=== PATIENT | female | born 1965 | race Two or more races ===

== ENCOUNTER 2020-04-08 07:46 | Outpatient (CLI) | payer OTHER | END 2020-04-08 08:07 | disposition home or self-care (01) | LOC: MAMO-SONO 07:46 | PROVIDERS: ATTEND Internal Medicine | DX: Z12.31 Encounter for screening mammogram for malignant neoplasm of breast (principal); N63.20 Unspecified lump in the left breast, unspecified quadrant; C73 Malignant neoplasm of thyroid gland; E89.0 Postprocedural hypothyroidism ==

== ENCOUNTER 2022-05-24 08:30 | Outpatient (CLI) | payer OTHER | END 2022-05-24 08:40 | disposition home or self-care (01) | LOC: SONOGRAMA 08:30 | PROVIDERS: ATTEND Internal Medicine Sports Medicine | DX: C73 Malignant neoplasm of thyroid gland (principal) ==

== ENCOUNTER 2023-01-22 09:50 | Outpatient (CLI) | payer OTHER | END 2023-01-22 10:08 | disposition home or self-care (01) | LOC: MAMO-SONO 09:50 | PROVIDERS: ATTEND Internal Medicine Sports Medicine | DX: Z12.31 Encounter for screening mammogram for malignant neoplasm of breast (principal); R31.29 Other microscopic hematuria ==

== ENCOUNTER 2023-06-11 07:59 | Outpatient (CLI) | payer OTHER | END 2023-06-11 08:07 | disposition home or self-care (01) | LOC: SONOGRAMA 07:59 | DX: M19.19 Post-traumatic osteoarthritis, other specified site (principal); Z13.828 Encounter for screening for other musculoskeletal disorder ==

== ENCOUNTER 2023-09-18 07:36 | Outpatient (CLI) | payer OTHER | END 2023-09-18 07:49 | disposition home or self-care (01) | LOC: RAD 07:36 | PROVIDERS: ATTEND Orthopaedic Surgery Orthopaedic Surgery of the Spine | DX: M17.0 Bilateral primary osteoarthritis of knee (principal); Z88.6 Allergy status to analgesic agent | CPT/HCPCS: 73721 ==

== ENCOUNTER 2024-08-25 07:03 | Outpatient (CLI) | payer OTHER | END 2024-08-25 07:16 | disposition home or self-care (01) | LOC: MAMO-SONO 07:03 | PROVIDERS: ATTEND Internal Medicine | DX: C73 Malignant neoplasm of thyroid gland (principal); Z12.31 Encounter for screening mammogram for malignant neoplasm of breast; Z12.39 Encounter for other screening for malignant neoplasm of breast; Z80.3 Family history of malignant neoplasm of breast ==

== ENCOUNTER 2024-09-28 09:40 | Outpatient (CLI) | payer OTHER | END 2024-09-28 09:41 | disposition home or self-care (01) | LOC: NUCLEAR 09:40 | DX: M81.0 Age-related osteoporosis without current pathological fracture (principal) ==

== ENCOUNTER 2025-01-09 09:12 | Outpatient (CLI) | payer OTHER | END 2025-01-09 09:15 | disposition home or self-care (01) | LOC: RAD 09:12 | PROVIDERS: ATTEND Internal Medicine | DX: M17.0 Bilateral primary osteoarthritis of knee (principal) ==

== ENCOUNTER 2025-09-14 07:10 | Outpatient (CLI) | payer OTHER | END 2025-09-14 07:11 | disposition home or self-care (01) | LOC: NUCLEAR 07:10 | PROVIDERS: ATTEND Internal Medicine | DX: I25.111 Atherosclerotic heart disease of native coronary artery with angina pectoris with documented spasm (principal) ==